=== PATIENT | male | born 1955 | race Caucasian/White ===

== ENCOUNTER 2017-01-17 10:51 | Outpatient (CLI) | payer BC ==
--- NOTE | 2017-01-17 12:56 | RAD ---
CHEST TWO VIEWS: History: Hypertension. Long time smoker. Comparison: 06-24-11 FINDINGS: Normal cardiac silhouette. There is atherosclerosis of the aorta. Pulmonary vessels and hilum are no rmal. Costophrenic angles are clear. There is a right lower lobe infiltrate. No pneumothorax or osse ous abnormality. IMPRESSION: Right lower lobe infiltrate. Short term follow up imaging to ensure resolution is recommended. If op acity is not resolved, consider CT. Code T POS: GONZALEZ
== END 2017-01-17 10:52 | disposition home or self-care (01) ==
LOC: MADRAD 10:51
PROVIDERS: ATTEND Obstetrics & Gynecology
DX: Z72.0 Tobacco use (principal); R91.8 Other nonspecific abnormal finding of lung field
CPT/HCPCS: 71020